=== PATIENT | male | born 1970 | race Caucasian/White ===

== ENCOUNTER 2016-12-08 22:54 | Emergency (ER) | payer SELFPAY ==
[~2016-12-08 22:54] MED LIST: AMBIEN5 MG PO; XANAX0.5 MG PO
[2016-12-08] MEDS ORDERED: AMOXIL500 MG PO (23:26)
[2017-06-26] MEDS ORDERED: ATIVAN0.5 MG PO (00:19)
== END 2016-12-09 00:02 | disposition short-term general hospital (02) ==
LOC: ER 22:54
DX: K40.90 Unilateral inguinal hernia, without obstruction or gangrene, not specified as recurrent (principal); F17.210 Nicotine dependence, cigarettes, uncomplicated; F41.9 Anxiety disorder, unspecified; G47.00 Insomnia, unspecified; Z79.899 Other long term (current) drug therapy
CPT/HCPCS: J0696